=== PATIENT | male | born 1970 ===

== ENCOUNTER → 2018-07-31 | Outpatient (REF) ==
--- NOTE | 2018-08-01 02:49 | REP ---
Clinical: Right knee pain. Technique: AP, lateral, bilateral oblique and sunrise views right knee . Findings: Mild generalized age-related changes are appreciated. No overt osteoarthritic degenerative findings noted. The osseous structures and joint spaces are intact and there is no evidence for acute fracture or dislocation. No joint effusion is appreciated. Surrounding soft tissues are unremarkable. No subcutaneous emphysema or radiodense foreign body. Impression: Mild generalized age-related changes. No acute fracture or dislocation. Electronically Signed by Tino Joel MD 08/01/2018 02:42 A
== END ==
LOC: M SMT 10:48
PROVIDERS: ATTEND Internal Medicine
DX: Z02.71 Encounter for disability determination (principal)